=== PATIENT | male | born 1960 | race Caucasian/White ===

== ENCOUNTER → 2020-06-05 | Outpatient (CLI) | payer OTHER ==
[~2020-06-05] MED LIST: METF850T10 PO
[2020-06-05 15:21] LABS: ALBUMIN 4.2 g/dL (3.4-5.0); ANION GAP 7 mmol/L (5-15); CALCIUM 9.1 mg/dL (8.5-10.1); CHLORIDE 104 mmol/L (98-107)
[2020-06-05 15:26] LABS: ALANINE AMINOTRANSFERASE 72 U/L (12-78); ALKALINE PHOSPHATASE 69 U/L (45-117); BILIRUBIN,TOTAL 0.4 mg/dL (0.2-1.0); CREATININE 0.93 mg/dL (0.7-1.3); TOTAL PROTEIN 7.3 g/dL (6.4-8.2)
== END | disposition home or self-care (01) ==
LOC: STAR 13:04
PROVIDERS: ATTEND Orthopaedic Surgery
DX: Z01.818 Encounter for other preprocedural examination (principal); M65.332 Trigger finger, left middle finger; Z20.822 Contact with and (suspected) exposure to COVID-19
CPT/HCPCS: 80053; 87635; 93005

== ENCOUNTER 2020-06-10 05:37 | Day surgery (SDC) | payer OTHER ==
[~2020-06-10] VITALS: Ht 180.3 cm; Wt 117.0 kg
[2020-06-10] MEDS ORDERED: LIDOCAINE/PF 1%, 30ML ONE (06:38)
[2020-06-10] MEDS ORDERED: BUPIVACAINE/PF 0.5% ONE (06:38)
[2020-06-10 06:40] VITALS: BP 149/97
[2020-06-10] MEDS ORDERED: LACTATED RINGERS 1,000 ML IV SCH (07:00)
[2020-06-10] MEDS ORDERED: CHLORHEXIDINE 15 ML UDC MM ONE (07:00)
[2020-06-10] MEDS ORDERED: MIDAZOLAM 1 MG/ML, 2ML ONE (07:18)
[2020-06-10] MEDS ORDERED: FENTANYL PF 100 MCG/2ML ONE (07:20)
[2020-06-10] MEDS ORDERED: CEFAZOLIN 1,000 MG ONE (07:25)
[2020-06-10] MEDS ORDERED: PROPOFOL 10 MG/ML, 20ML ONE (07:38)
[2020-06-10] MEDS ORDERED: HYDROmorphone 2 MG/ML, 1ML IVPush PRN (08:00)
[2020-06-10] MEDS ORDERED: ACETAMINOPHEN 325 MG TABLET PO PRN (08:00)
[2020-06-10] MEDS ORDERED: OXYcodone 5 MG/5 ML ORAL.SOL UDC PO PRN (08:00)
[2020-06-10] MEDS ORDERED: DIAZEPAM 5 MG/ML, 2ML IVPush PRN (08:00)
[2020-06-10] MEDS ORDERED: FENTANYL PF 100 MCG/2ML IV PRN (08:00)
[2020-06-10] MEDS ORDERED: ALBUTEROL SULFATE 2.5 MG/3 ML NPPB PRN (08:00)
[2020-06-10] MEDS ORDERED: KETOROLAC 30 MG/1 ML IV PRN (08:00)
[2020-06-10] MEDS ORDERED: MEPERIDINE/PF 25MG/0.5ML IVPush PRN (08:00)
[2020-06-10] MEDS ORDERED: hydrALAzine 20 MG/ML, 1ML IV PRN (08:00)
[2020-06-10] MEDS ORDERED: PROMETHAZINE 25 MG/ML, 1ML IV PRN (08:00)
[2020-06-10] MEDS ORDERED: LABETALOL 5MG/ML, 20ML IV PRN (08:00)
== END 2020-06-10 08:34 | disposition home or self-care (01) ==
LOC: OUT 05:37
PROVIDERS: ATTEND Orthopaedic Surgery
DX: M65.332 Trigger finger, left middle finger (principal); M65.842 Other synovitis and tenosynovitis, left hand; E11.9 Type 2 diabetes mellitus without complications; E66.9 Obesity, unspecified; Z68.36 Body mass index [BMI] 36.0-36.9, adult; Z79.84 Long term (current) use of oral hypoglycemic drugs; Z79.899 Other long term (current) drug therapy; Z82.49 Family history of ischemic heart disease and other diseases of the circulatory system
CPT/HCPCS: 26055; 82962; J0690; J2250; J2704; J3010; J7120